=== PATIENT | male | born 1955 | race African-American/Black ===

== ENCOUNTER → 2021-04-10 | Outpatient (CLI) | payer OTHER ==
--- NOTE | 2021-04-10 13:20 | RAD ---
EXAM: XR ELBOW COMPLETE_LEFT 3+VIEWS 04/10/2021 1:00 PM CLINICAL INDICATION: Injured left elbow today, pain posteriorly. COMPARISON: None TECHNIQUE: AP, oblique, and lateral views of the left elbow. FINDINGS: No acute fracture. Alignment is normal. Joint spaces are maintained. There is no joint eff usion or soft tissue abnormality. IMPRESSION: No acute osseous abnormality. Electronically signed by: Yolanda Oliavs MD (04/10/2021 1:17 PM) [id number]
== END ==
LOC: RAD 12:54
PROVIDERS: ATTEND Nurse Practitioner Family
DX: S59.902A Unspecified injury of left elbow, initial encounter (principal); X58.XXXA Exposure to other specified factors, initial encounter; Y93.89 Activity, other specified; Y92.89 Other specified places as the place of occurrence of the external cause; Y99.8 Other external cause status
CPT/HCPCS: 73080